=== PATIENT | male | born 1985 | race Hispanic/Latino ===

== ENCOUNTER 2017-01-31 03:38 | Emergency (ER) | payer OTHER ==
--- NOTE | 2017-01-31 04:59 | ED PDOC ---
HPI: Psych/Substance Abuse Time Seen by Provider: 01/31/17 03:47 Chief Complaint (Nursing): Alcohol Ingestion Chief Complaint (Provider): Alcohol Intoxication ED Caveat: Intoxicated History Per: Patient, EMS History/Exam Limitations: intoxication Onset/Duration Of Symptoms: Hrs Current Symptoms Are (Timing): Still Present Additional Complaint(s): HPI is limited due to patient's intoxicated state. Patient is a 31 y/o male brought to the ED by EMS personnel for alcohol intoxication and walking with unsteady gait. Patient admits to drinking but denies any drug or substance use. PCP: FAMILY PROVIDER,NO Past Medical History Reviewed: Historical Data, Nursing Documentation, Vital Signs Vital Signs: Last Vital Signs Temp 97.8 F 01/31/17 03:50 Pulse 98 H 01/31/17 03:50 Resp 16 01/31/17 03:50 BP 150/96 H 01/31/17 03:50 Pulse Ox 100 01/31/17 03:50 - Medical History Other PMH: Unable to obtain - Surgical History Surgical History: No Surg Hx - Family History Family History: States: No Known Family Hx - Social History Alcohol: Occasional Drugs: Denies - Home Medications Home Medications: Ambulatory Orders Medication Instructions Recorded Unobtainable 01/31/17 - Allergies Allergies/Adverse Reactions: Allergies Allergy/AdvReac Type Severity Reaction Status Date / Time No Known Allergies Allergy Verified 01/31/17 03:53 Review of Systems ROS Statement: Except As Marked, All Systems Reviewed And Found Negative Neurological: Positive for: Other (unsteady gait) Physical Exam - Reviewed Nursing Documentation Reviewed: Yes Vital Signs Reviewed: Yes - Physical Exam Appears: Positive for: No Acute Distress Head Exam: Positive for: NORMOCEPHALIC. Negative for: ATRAUMATIC (abrasions on head bilaterally) Skin: Positive for: Normal Color, Warm, Dry Eye Exam: Positive for: Normal appearance, EOMI, PERRL Neck: Positive for: Normal, Painless ROM, Supple Cardiovascular/Chest: Positive for: Regular Rate, Rhythm. Negative for: Murmur Respiratory: Positive for: Normal Breath Sounds. Negative for: Respiratory Distress Gastrointestinal/Abdominal: Positive for: Normal Exam, Soft. Negative for: Tenderness Back: Positive for: Normal Inspection. Negative for: L CVA Tenderness, R CVA Tenderness, Vertebral Tenderness Extremity: Positive for: Normal ROM, Other (Abrasions on hands). Negative for: Pedal Edema Neurologic/Psych: Positive for: Alert, Oriented (x3). Negative for: Motor/ Sensory Deficits - ECG O2 Sat by Pulse Oximetry: 100 (RA) Pulse Ox Interpretation: Normal Medical Decision Making Medical Decision Making: Time: 04:01 Initial Impression: Alcohol intoxication Initial Plan: --CT Head W/O contrast --Alcohol Serum --Ativan 2mg IM --Haldol 5mg IM Time: 04:18 --Restraint: Violent or harm to self/other -Patient tried to violently leave the ER, restraints required Time: 06:03 CT Head W/O contrast FINDINGS: There is motion artifact. There is no midline shift or mass effect. There is no definite intracranial blood or extra-axial fluid collection. There is no acute stroke. The skull shows no evidence of injury or other acute pathologic processes. IMPRESSION: Limited examination due to motion. There is no definite acute intracranial abnormality. 7AM signed out to Dr. Moy pending sobriety Scribe Attestation: Documented by Edmond Tompkins, acting as a scribe for Ronen Gutierrez MD Provider Scribe Attestation: All medical record entries made by the Scribe were at my direction and personally dictated by me. I have reviewed the chart and agree that the record accurately reflects my personal performance of the history, physical exam, medical decision making, and the department course for this patient. I have also personally directed, reviewed, and agree with the discharge instructions and disposition. Disposition - Clinical Impression Clinical Impression: Alcohol abuse - Patient ED Disposition Is Patient to be Admitted: Transfer of Care - Disposition Disposition: Transfer of Care Disposition Time: 07:00 Condition: STABLE Forms: [employer] ([place]) Patient Signed Over To: Evan Moy Handoff Comments: pending sobriety
--- NOTE | 2017-01-31 07:38 | ED PDOC ---
- ECG O2 Sat by Pulse Oximetry: 100 (RA) - CT Scan/US head Other Rad Studies (CT/US): Read By Radiologist Other Rad Interpretation: no acute - Progress ED Course And Treament: 738: Stable. Took over care from Dr. Gutierrez. Pending sobriety. Given ativan and haldol. 1233: Stable. More arousable. Pending sobriety. 1441: Stable. AAOx3. Tolerated po. Ambulated with no issues. Fu with pcp. Disposition Counseled Patient/Family Regarding: Studies Performed, Diagnosis, Need For Followup - Clinical Impression Clinical Impression: Alcohol abuse - POA Present On Arrival: None - Disposition Referrals: [facility] [Outside] - 02/02/17 Disposition: Routine/Home Disposition Time: 14:43 Condition: STABLE Additional Instructions: Return if not better in 3 days. Instructions: Abuse of Alcohol (ED)
--- NOTE | 2017-01-31 12:38 | CT ---
PROCEDURE: CT HEAD WITHOUT CONTRAST. HISTORY: intox, head injury COMPARISON: None available. TECHNIQUE: Axial computed tomography images were obtained through the head/brain without intravenous contrast. Radiation dose: Total exam DLP = 805 mGy-cm. This CT exam was performed using one or more of the following dose reduction techniques: Automated exposure control, adjustment of the mA and/or kV according to patient size, and/or use of iterative reconstruction technique. FINDINGS: HEMORRHAGE: No intracranial hemorrhage. BRAIN: No mass effect or edema. No atrophy or chronic microvascular ischemic changes. VENTRICLES: Unremarkable. No hydrocephalus. CALVARIUM: Unremarkable. PARANASAL SINUSES: Unremarkable as visualized. No significant inflammatory changes. MASTOID AIR CELLS: Unremarkable as visualized. No inflammatory changes. OTHER FINDINGS: None. IMPRESSION: Normal CT of the Head. Limited by patient motion artifact.
[2017-01-31] MEDS ORDERED: Sodium Chloride 0.9% 1,000 ML IV STA (14:14)
[2017-01-31 14:25] VITALS: TEMP 99.9
[2017-01-31 15:24] VITALS: BP 105/67; PULSE 98; RESP 18; O2SAT 99
== END 2017-01-31 15:16 | disposition home or self-care (01) ==
LOC: H.ER 03:38
DX: F10.129 Alcohol abuse with intoxication, unspecified (principal); S09.90XA Unspecified injury of head, initial encounter; Y90.8 Blood alcohol level of 240 mg/100 ml or more
CPT/HCPCS: 70450; 80320; 82948; 96360; 96372; 99285; J1630; J2060; J2405; J7040